=== PATIENT | male | born 1950 | race Caucasian/White ===

== ENCOUNTER 2018-02-18 12:19 | Emergency (ER) | payer OTHER ==
[~2018-02-18] VITALS: Ht 167.6 cm; Wt 78.0 kg
[2018-02-18 12:24] VITALS: Ht 167.6 cm; Wt 78.0 kg
[2018-02-18 14:21] VITALS: BP 120/79
== END 2018-02-18 14:20 | disposition home or self-care (01) ==
LOC: ED 12:19
DX: J45.901 Unspecified asthma with (acute) exacerbation (principal); J18.9 Pneumonia, unspecified organism; Z88.8 Allergy status to other drugs, medicaments and biological substances
CPT/HCPCS: J7512; J7613; J7644; Q0092

== ENCOUNTER 2018-02-21 17:51 | Emergency (ER) | payer OTHER ==
[~2018-02-21] VITALS: Ht 167.6 cm; Wt 84.4 kg
[2018-02-21 17:54] VITALS: Ht 167.6 cm; Wt 84.4 kg
[2018-02-21 20:19] VITALS: BP 133/59
== END 2018-02-21 20:19 | disposition home or self-care (01) ==
LOC: ED 17:51
DX: J40 Bronchitis, not specified as acute or chronic (principal)
CPT/HCPCS: J7613; J7644